=== PATIENT | female | born 1990 | race Caucasian/White ===

== ENCOUNTER 2019-03-22 23:08 | Emergency (ER) | payer OTHER | END 2019-03-23 02:21 | disposition home or self-care (01) | LOC: ED 23:08 ==

== ENCOUNTER 2019-03-25 21:48 | Emergency (ER) | payer OTHER ==
[~2019-03-25] VITALS: Ht 157.5 cm; Wt 57.2 kg
[2019-03-26 00:07] VITALS: BP 135/84
== END 2019-03-26 | disposition home or self-care (01) ==
LOC: ED 21:48
DX: O16.1 Unspecified maternal hypertension, first trimester (principal); Z3A.01 Less than 8 weeks gestation of pregnancy

== ENCOUNTER 2019-07-08 11:42 | Emergency (ER) | payer OTHER ==
[~2019-07-08] VITALS: Ht 157.5 cm; Wt 68.6 kg
[2019-07-08 12:39] LABS: BASOPHIL % 0.3 % (0-2); PLATELET COUNT 247 x10^3mcL (130-400); RED CELL DISTRIBUTION WIDTH 13.1 % (11.5-14.5)
[2019-07-08 13:24] VITALS: BP 101/62
== END 2019-07-08 14:18 | disposition home or self-care (01) ==
LOC: ED 11:42
PROVIDERS: Emergency Medicine
DX: O26.892 Other specified pregnancy related conditions, second trimester (principal); R04.0 Epistaxis; Z3A.20 20 weeks gestation of pregnancy
CPT/HCPCS: 36415